=== PATIENT | male | born 1980 | race Caucasian/White ===

== ENCOUNTER 2020-01-05 13:51 | Emergency (ER) | payer SELFPAY ==
[~2020-01-05] VITALS: Ht 182.9 cm; Wt 55.3 kg
== END 2020-01-05 18:07 | disposition home or self-care (01) ==
LOC: ER 15:34
DX: S20.212A Contusion of left front wall of thorax, initial encounter (principal); S16.1XXA Strain of muscle, fascia and tendon at neck level, initial encounter; Y04.0XXA Assault by unarmed brawl or fight, initial encounter; Y92.89 Other specified places as the place of occurrence of the external cause; G40.909 Epilepsy, unspecified, not intractable, without status epilepticus; J45.909 Unspecified asthma, uncomplicated; F17.210 Nicotine dependence, cigarettes, uncomplicated
CPT/HCPCS: 70450; 71250; 72125; 99283

== ENCOUNTER 2024-01-25 08:53 | Inpatient (IN) | payer SELFPAY ==
[~2024-01-25] VITALS: Ht 182.9 cm; Wt 63.5 kg
[2024-01-25 09:00] VITALS: PULSE 85; RESP 16; TEMP 98.1
[2024-01-25 09:42] LABS: BASOPHILS # (AUTO) 0.1 (0.0-0.1); BASOPHILS % 1.3 % (0.0-1.0); EOSINOPHILS # (AUTO) 0.5 (0.0-0.4); HEMATOCRIT 34.1 % (38.2-49.6); HEMOGLOBIN 10.3 g/dL (14.0-18.0); LYMPHOCYTES # (AUTO) 1.7 (1.0-3.2); LYMPHOCYTES % 21.7 % (18.0-39.1); MEAN CORPUSCULAR HEMOGLOBIN 25.1 pg (28-32); MEAN CORPUSCULAR HGB CONC 30.2 g/dL (31-35); MEAN CORPUSCULAR VOLUME 83.2 fL (81-99); MONOCYTES # (AUTO) 0.4 (0.2-0.8); MONOCYTES % 5.8 % (4.4-11.3); NEUTROPHILS # (AUTO) 4.9 (2.1-6.9); NEUTROPHILS % 63.9 % (38.7-80.0); PLATELET COUNT 245 x10e3/uL (140-360); RED CELL DISTRIBUTION WIDTH 19.9 % (11.7-14.4)
[2024-01-25] MEDS: TRAMADOL HCL 50 MG TAB PO ONE (09:57)
[2024-01-25 10:02] LABS: ALBUMIN/GLOBULIN RATIO 0.7 (0.8-2.0); ANION GAP 14.1 mmol/L (8-16); BILIRUBIN,TOTAL 0.2 mg/dL (0.2-1.2); CALCIUM 9.3 mg/dL (8.4-10.2); CREATININE, SERUM 0.72 mg/dL (0.72-1.25); POTASSIUM 4.1 mmol/L (3.5-5.1); TOTAL PROTEIN 7.1 g/dL (6.5-8.1)
[2024-01-25 10:18] LABS: INR 0.86; PARTIAL THROMBOPLASTIN TIME 32.2 seconds (23.8-35.5); PROTHROMBIN TIME 12.3 seconds (11.9-14.5)
[2024-01-25] MEDS ORDERED: SODIUM CHLORIDE FLUSH 10 ML SYR INJ PRN (10:30)
[2024-01-25] MEDS ORDERED: ONDANSETRON HCL INJ 2MG/ML 2ML 2 MG/ML VIAL IV PRN (10:30)
[2024-01-25] MEDS: HEPARIN SOD (PORCINE) 5,000 UNIT/ML VIAL IV ONE (10:53)
[2024-01-25 13:29] LABS: CHOL/HDL RATIO 4.2 (3.9-4.7)
[2024-01-25 13:59] LABS: FREE T4 (FREE THYROXINE) 0.88 ng/dL (0.8-1.8); THYROID STIMULATING HORMONE 0.228 uIU/mL (0.350-4.940)
[2024-01-25 16:00] VITALS: BP 156/98; PULSE 116; RESP 18; TEMP 98.2; O2SAT 100
[2024-01-25 16:34] VITALS: TEMP 98.4
[2024-01-25] MEDS: Morphine 4mg INJECTION 4 MG/ML INJ IV ONE (16:48)
[2024-01-25] MEDS: HEPARIN SOD/DEXTROSE 5% 25000 UNIT/250 ML BAG IV SCH (16:48)
[2024-01-25 20:00] VITALS: BP 95/52; PULSE 71; RESP 20; TEMP 98.2; O2SAT 96
[2024-01-26] VITALS: BP 97/61; PULSE 71; RESP 18; TEMP 97.6; O2SAT 98
[2024-01-26] MEDS: HYDROCODONE/APAP 5MG-325MG TAB PO PRN (00:51)
[2024-01-26] MEDS: HEPARIN SOD/DEXTROSE 5% 25000 UNIT/250 ML BAG IV SCH (01:00)
[2024-01-26 04:00] VITALS: BP 99/62; PULSE 72; RESP 18; TEMP 97.6; O2SAT 96
[2024-01-26 06:06] LABS: BASOPHILS # (AUTO) 0.1 (0.0-0.1); EOSINOPHILS # (AUTO) 0.6 (0.0-0.4); EOSINOPHILS % 7.9 % (0.0-6.0); HEMATOCRIT 31.5 % (38.2-49.6); HEMOGLOBIN 9.6 g/dL (14.0-18.0); LYMPHOCYTES # (AUTO) 2.3 (1.0-3.2); LYMPHOCYTES % 31.7 % (18.0-39.1); MEAN CORPUSCULAR HGB CONC 30.5 g/dL (31-35); MONOCYTES # (AUTO) 0.5 (0.2-0.8); MONOCYTES % 6.6 % (4.4-11.3); NEUTROPHILS # (AUTO) 3.7 (2.1-6.9); NEUTROPHILS % 52.5 % (38.7-80.0); PLATELET COUNT 252 x10e3/uL (140-360); RED BLOOD COUNT 3.84 x10e6/uL (4.3-5.7); WHITE BLOOD COUNT 7.12 x10e3/uL (4.8-10.8)
[2024-01-26 06:33] LABS: ALBUMIN 2.6 g/dL (3.5-5.0); ALBUMIN/GLOBULIN RATIO 0.7 (0.8-2.0); ANION GAP 13.7 mmol/L (8-16); BILIRUBIN,TOTAL 0.2 mg/dL (0.2-1.2); CALCIUM 8.8 mg/dL (8.4-10.2); CREATININE, SERUM 0.7 mg/dL (0.72-1.25); POTASSIUM 3.7 mmol/L (3.5-5.1); TOTAL PROTEIN 6.1 g/dL (6.5-8.1)
[2024-01-26 08:00] VITALS: BP 99/62; PULSE 72; RESP 18; TEMP 97.6; O2SAT 96
[2024-01-26 08:02] VITALS: BP 99/56; PULSE 63; RESP 20; TEMP 98.3; O2SAT 97
[2024-01-26] MEDS ORDERED: [UNRECOGNIZED DRUG - OTHER] IV SCH (08:45)
[2024-01-26] MEDS: [UNRECOGNIZED DRUG - OTHER] IV SCH ×2 (08:45→13:50)
[2024-01-26] MEDS ORDERED: DEXTROSE 5% IV SCH (08:45)
[2024-01-26] MEDS: HEPARIN IV SCH ×2 (08:45→13:50)
[2024-01-26] MEDS ORDERED: HEPARIN IV SCH (08:45)
[2024-01-26] MEDS: DEXTROSE 5% IV SCH ×2 (08:45→13:50)
[2024-01-26 12:16] VITALS: BP 103/59; PULSE 71; RESP 18; TEMP 97.8; O2SAT 97
[2024-01-26] MEDS: APIXABAN 5 MG TABLET PO SCH (15:27)
[2024-01-26 20:00] VITALS: BP 109/47; PULSE 58; RESP 18; TEMP 97.6; O2SAT 100
[2024-01-27] VITALS: BP 104/48; PULSE 58; RESP 18; TEMP 97.8; O2SAT 99
[2024-01-27 04:00] VITALS: BP 108/73; PULSE 71; RESP 18; TEMP 97.6; O2SAT 97
[2024-01-27 08:27] LABS: BASOPHILS # (AUTO) 0.1 (0.0-0.1); BASOPHILS % 0.9 % (0.0-1.0); EOSINOPHILS # (AUTO) 0.5 (0.0-0.4); EOSINOPHILS % 6.8 % (0.0-6.0); HEMATOCRIT 34.2 % (38.2-49.6); HEMOGLOBIN 10.6 g/dL (14.0-18.0); LYMPHOCYTES # (AUTO) 1.6 (1.0-3.2); LYMPHOCYTES % 21.4 % (18.0-39.1); MEAN CORPUSCULAR HEMOGLOBIN 25.2 pg (28-32); MEAN CORPUSCULAR VOLUME 81.4 fL (81-99); MONOCYTES # (AUTO) 0.5 (0.2-0.8); MONOCYTES % 6.6 % (4.4-11.3); NEUTROPHILS # (AUTO) 4.8 (2.1-6.9); NEUTROPHILS % 64.2 % (38.7-80.0); PLATELET COUNT 287 x10e3/uL (140-360); RED CELL DISTRIBUTION WIDTH 19.6 % (11.7-14.4); WHITE BLOOD COUNT 7.47 x10e3/uL (4.8-10.8)
[2024-01-27 09:00] VITALS: BP 105/48; PULSE 67; RESP 19; TEMP 98.6; O2SAT 100
[2024-01-27 09:13] VITALS: BP 105/48; PULSE 67; RESP 19; TEMP 98.6; O2SAT 100
[2024-01-27] MEDS ORDERED: ACETAMINOPHEN-1 EAC4 PO (12:30)
[2024-01-27] MEDS ORDERED: ONDANSETRON ODT4 MG PO (12:30)
[2024-01-27] MEDS ORDERED: ELIQUIS5 MG PO (12:30)
[2024-01-27] MEDS ORDERED: AMMONIUM LACTATE 12% LOTION 225GM BTL TOP SCH (17:00)
== END 2024-01-27 16:00 | disposition home or self-care (01) | DRG 299 ==
LOC: ER 08:58 → ERHOLD 10:26 → MED/SURG2 11:42 → OBSVTOIN 01-26 12:32
PROVIDERS: ADMIT Internal Medicine; ATTEND Internal Medicine
DX: I82.411 Acute embolism and thrombosis of right femoral vein (principal); L89.313 Pressure ulcer of right buttock, stage 3; R64 Cachexia; Z59.02 Unsheltered homelessness; L03.115 Cellulitis of right lower limb; Z68.1 Body mass index [BMI] 19.9 or less, adult; I82.431 Acute embolism and thrombosis of right popliteal vein; D64.9 Anemia, unspecified; R45.1 Restlessness and agitation; J45.909 Unspecified asthma, uncomplicated; G40.909 Epilepsy, unspecified, not intractable, without status epilepticus; G89.4 Chronic pain syndrome; Z91.190 Patient's noncompliance with other medical treatment and regimen due to financial hardship; Z99.3 Dependence on wheelchair; Z93.3 Colostomy status; F17.200 Nicotine dependence, unspecified, uncomplicated
CPT/HCPCS: 36415; 80053; 80061; 83036; 84439; 84443; 85025; 85610; 85730; 93971; 99252; 99285; G0378; J1644; J2270

== ENCOUNTER 2024-07-22 05:57 | Emergency (ER) | payer SELFPAY ==
[~2024-07-22] VITALS: Ht 182.9 cm; Wt 63.5 kg
[~2024-07-22 05:57] MED LIST: ACETAMINOPHEN-1 EAC4 PO; ELIQUIS5 MG PO; ONDANSETRON ODT4 MG PO
[2024-07-22] MEDS ORDERED: MUPIROCIN22 GM TOP (06:30)
[2024-07-22 10:34] VITALS: PULSE 78; RESP 20; TEMP 98.4; O2SAT 98
== END 2024-07-22 10:46 | disposition home or self-care (01) ==
LOC: ER 06:11
DX: N49.2 Inflammatory disorders of scrotum (principal); Z43.3 Encounter for attention to colostomy; J45.909 Unspecified asthma, uncomplicated; G40.909 Epilepsy, unspecified, not intractable, without status epilepticus; Z86.718 Personal history of other venous thrombosis and embolism; F17.210 Nicotine dependence, cigarettes, uncomplicated
CPT/HCPCS: 99283

== ENCOUNTER 2024-10-19 11:28 | Emergency (ER) | payer SELFPAY ==
[~2024-10-19] VITALS: Ht 182.9 cm; Wt 65.8 kg
[~2024-10-19 11:28] MED LIST changes: +MUPIROCIN22 GM TOP
[2024-10-19 11:55] VITALS: TEMP 98.2
[2024-10-19] MEDS ORDERED: CIPRO500 MG PO (14:01)
[2024-10-19] MEDS ORDERED: BACTRIM 400-801 EACH PO (14:01)
[2024-10-19] MEDS ORDERED: DOXYCYCLINE HY100 MG PO (15:07)
[2024-10-19] MEDS ORDERED: LEVOFLOXACIN 500 MG TAB ONE (16:11)
[2024-10-19] MEDS ORDERED: TRIMETHOPRIM/SULFAMETHOXAZOLE 160-800 MG TAB ONE (16:11)
[2024-10-19] MEDS: LEVOFLOXACIN 500 MG TAB PO ONE (16:20)
[2024-10-19] MEDS: TRIMETHOPRIM/SULFAMETHOXAZOLE 160-800 MG TAB PO ONE (16:20)
[2024-10-19 16:23] VITALS: PULSE 68; RESP 14; O2SAT 100
== END 2024-10-19 16:57 | disposition home or self-care (01) ==
LOC: ER 11:57
DX: Z43.3 Encounter for attention to colostomy (principal); L89.152 Pressure ulcer of sacral region, stage 2; S91.301D Unspecified open wound, right foot, subsequent encounter; J45.909 Unspecified asthma, uncomplicated; G40.909 Epilepsy, unspecified, not intractable, without status epilepticus; Z86.718 Personal history of other venous thrombosis and embolism
CPT/HCPCS: 99284

== ENCOUNTER 2024-12-01 11:14 | Emergency (ER) | payer SELFPAY ==
[~2024-12-01] VITALS: Ht 182.9 cm; Wt 68.0 kg
[~2024-12-01 11:14] MED LIST changes: +BACTRIM 400-801 EACH PO; +CIPRO500 MG PO; +DOXYCYCLINE HY100 MG PO
[2024-12-01 11:20] VITALS: TEMP 98.2
[2024-12-01 16:15] VITALS: PULSE 92; RESP 16; O2SAT 100
== END 2024-12-01 16:20 | disposition home or self-care (01) ==
LOC: ER 11:52
DX: K94.09 Other complications of colostomy (principal); G40.909 Epilepsy, unspecified, not intractable, without status epilepticus; J45.909 Unspecified asthma, uncomplicated; Z86.718 Personal history of other venous thrombosis and embolism
CPT/HCPCS: 99283